=== PATIENT | male | born 1980 | race African-American/Black ===

== ENCOUNTER 2020-03-17 11:26 | Emergency (ER) | payer BC, OTHER ==
[~2020-03-17] VITALS: Ht 175.3 cm; Wt 97.5 kg
[~2020-03-17 11:26] MED LIST: CIPRO500 MG PO; DOXYCYCLINE 10100 MG PO; DULCOLAX5 MG PO; FLAGYL500 MG PO; IBUPROFEN 600600 M1 PO; IBUPROFEN 800800 M1 PO; NAPROSYN500 MG PO; NOHOMEMEDICATIONS; NORCO 5-325 TA1 EACH PO; NORFLEX100 MG PO; PENICILLIN V P500 MG PO; PENICILLIN VK500 MG PO; PHENERGAN25 MG RE; PREDNISONE 20 M20 M1 PO; PROMETHAZINE-C120 ML PO; PROVENTIL HFA6.7 G1 INH; TESSALON PERLE100 MG PO; TRAMADOL 50 MG50 MG PO; TUCKS MEDICATE1 EAC2 TP; ULTRAM 50MG TAB50 MG PO; ZPAK PO
[2020-03-17 13:14] VITALS: BP 120/85
== END 2020-03-17 13:15 | disposition home or self-care (01) ==
LOC: ER 11:26
DX: U07.1 COVID-19 (principal); B34.9 Viral infection, unspecified; J45.909 Unspecified asthma, uncomplicated

== ENCOUNTER 2020-03-30 14:54 | Emergency (ER) | payer OTHER ==
[~2020-03-30] VITALS: Ht 175.3 cm; Wt 97.5 kg
[2020-03-30 16:56] VITALS: BP 124/86
== END 2020-03-30 16:56 | disposition home or self-care (01) ==
LOC: ER 14:54
DX: J45.909 Unspecified asthma, uncomplicated (principal); G89.29 Other chronic pain; M54.9 Dorsalgia, unspecified; Z20.828 Contact with and (suspected) exposure to other viral communicable diseases

== ENCOUNTER 2020-06-06 07:38 | Emergency (ER) | payer OTHER ==
[~2020-06-06] VITALS: Ht 175.3 cm; Wt 104.3 kg
[2020-06-06 08:27] LABS: BASOPHILS 1.2 % (0.0-2.0); EOSINOPHILS 2.1 % (0.0-3.0); HEMATOCRIT 43.4 % (42.0-52.0); HEMOGLOBIN 14.4 gm/dL (14.0-18.0); LYMPHOCYTES 26.3 % (24.0-44.0); MCH 29.7 pg (26.0-34.0); MCHC 33.2 g/dL (28.0-37.0); MCV 89.5 fL (80.0-100.0); MONOCYTES 7.3 % (1.0-8.0); PLATELET COUNT 220 thou/uL (150-400); POLYS 63.1 % (36.0-66.0); RBC 4.84 mil/uL (4.50-6.00); RDW 14.9 % (10.5-14.5); WBC 7.9 thou/uL (4.0-11.0)
[2020-06-06 08:44] LABS: ANION GAP 10 mmol/L (7-16); BUN 14 mg/dL (7-18); CALCIUM 9.5 mg/dL (8.5-10.1); CHLORIDE 104 mmol/L (98-107); CO2 26 mmol/L (21-32); GLUCOSE 108 mg/dL (74-106); POTASSIUM 4.1 mmol/L (3.5-5.1); SODIUM 140 mmol/L (136-145)
[2020-06-06 08:53] LABS: LIPASE 164 U/L (73-393); TROPONIN-I <0.06 ng/mL (<0.06)
--- NOTE | 2020-06-06 08:57 | EKG ---
[facility] [place] [address] ELECTROCARDIOGRAM REPORT Name: KSENIA BRIONES Room #: [facility]#: [id number] Admission: 06/06/20 Attend Phys: Discharge: Date of : 82 Report #: [id number] THIS REPORT FOR: cc: PRAMOD - [facility] family physician/PCP PRAMOD - [facility] family physician/PCP Baljit Cortez MD [facility] ~ THIS REPORT FOR: //name// [facility] ED Test Date: 2020-06-06 Test Time: 08:21:57 Pat Name: KSENIA BRIONES Department: Room: Gender: M Ear Machine Operator: [facility] : 1980 Requested By: Kenneth Curry Order Number: [id number] MD: Baljit Cortez Measurements Intervals [place] Rate: 74 P: 11 TN: 160 QRS: 4 QRSD: 86 T: 15 QT: 396 QTc: 440 Interpretive Statements Sinus rhythm Normal tracing Compared to ECG 07/19/2016 08:38:19 No significant changes Electronically Signed On 06-06-2020 8:57:47 CDT by Baljit Cortez [email or web address] <ELECTRONICALLY SIGNED> By: Baljit Cortez MD, [facility] 06/06/20 0857 0 0 Baljit Cortez MD, FACC /EPI
[2020-06-06 09:19] VITALS: BP 134/86
== END 2020-06-06 09:50 | disposition home or self-care (01) ==
LOC: ER 07:38
PROVIDERS: Emergency Medicine
DX: R07.89 Other chest pain (principal); J45.909 Unspecified asthma, uncomplicated; G89.29 Other chronic pain; M54.9 Dorsalgia, unspecified